=== PATIENT | male | born 1955 | race Caucasian/White ===

== ENCOUNTER 2019-06-14 13:41 | Emergency (ER) | payer OTHER ==
[~2019-06-14] VITALS: Ht 188 cm; Wt 92.1 kg
[2019-06-14 14:00] VITALS: BP 122/68
[2019-06-16] MEDS ORDERED: NAPR-1192 PO (12:08)
== END 2019-06-14 15:49 | disposition home or self-care (01) ==
LOC: ER 13:48
DX: S86.812A Strain of other muscle(s) and tendon(s) at lower leg level, left leg, initial encounter (principal); Z86.718 Personal history of other venous thrombosis and embolism; Z86.711 Personal history of pulmonary embolism; X58.XXXA Exposure to other specified factors, initial encounter; Y93.89 Activity, other specified; Y92.89 Other specified places as the place of occurrence of the external cause; Y99.8 Other external cause status
CPT/HCPCS: 93971-TC

== ENCOUNTER 2019-06-15 20:13 | Emergency (ER) | payer OTHER ==
[~2019-06-15] VITALS: Ht 182.9 cm; Wt 92.1 kg
--- NOTE | 2019-06-15 20:34 | NUR ---
CALLED IN [facility], NO ANSWER.
--- NOTE | 2019-06-15 20:50 | NUR ---
PT BIBSELF C/O CHEST PAIN WITH SOB X 2 HRS. PT AMBULATORY WITH STEADY GAIT, TAKEN TO ROOM 3. PT AXO4. PT TACHYNIC. 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
--- NOTE | 2019-06-15 20:56 | NUR ---
20 RAC IV STARTED, BLOOD WITHDRAWN AND SENT TO LAB.
[2019-06-15 21:07] LABS: BASOPHILS # (AUTO) 0.1 /CMM (0.0-0.2); BASOPHILS % (AUTO) 0.7 % (0.0-2.0); EOSINOPHILS % (AUTO) 2.3 % (0.0-6.0); HEMATOCRIT 46 % (39-51); HEMOGLOBIN 15.8 g/dL (13.5-17.5); LYMPHOCYTES # (AUTO) 1.1 /CMM (0.8-4.8); LYMPHOCYTES % (AUTO) 13.6 % (20.0-44.0); MEAN CORPUSCULAR HGB CONC 34 g/dl (31.0-36.0); MEAN CORPUSCULAR VOLUME 99 fL (80-96); MONOCYTES # (AUTO) 0.9 /CMM (0.1-1.30); MONOCYTES % (AUTO) 10.4 % (2.0-12.0); NEUTROPHILS # (AUTO) 6.1 /CMM (1.8-8.9); PLATELET COUNT (AUTO) 255 /CMM (150-450); WHITE BLOOD COUNT (AUTO) 8.4 K/uL (4.3-11.0)
--- NOTE | 2019-06-15 21:18 | NUR ---
XRAY AT BEDSIDE.
[2019-06-15 21:21] LABS: CALCIUM, SERUM 9.1 mg/dL (8.5-10.1); CARBON DIOXIDE 27 mmol/L (21-32); CHLORIDE 106 mmol/L (98-107); CREATININE 1.2 mg/dL (0.6-1.3); GLUCOSE 190 mg/dL (74-106); POTASSIUM 3.5 mmol/L (3.5-5.1); SODIUM SERUM 142 mmol/L (136-145); UREA NITROGEN, BLOOD 11 mg/dL (7-18)
--- NOTE | 2019-06-15 23:33 | NUR ---
Patient does not wish to proceed with medical care recommended by Dr. DURAN. Patient given information related to possible complications, up to and including , which could occur as a result of leaving the hospital at this time. Patient verbalizes understanding of risks involved due to leaving against medical advice. Patient has signed AMA form.
[2019-06-15 23:47] VITALS: BP 127/80
[2019-06-16] MEDS ORDERED: NAPR-1192 PO (12:08)
== END 2019-06-15 23:47 | disposition left against medical advice (07) ==
LOC: ER 20:16
DX: R07.89 Other chest pain (principal); R00.0 Tachycardia, unspecified; I25.10 Atherosclerotic heart disease of native coronary artery without angina pectoris; Z86.711 Personal history of pulmonary embolism; Z86.718 Personal history of other venous thrombosis and embolism
CPT/HCPCS: 36415; 71045-TC; 80048-TC; 84484-TC; 85025-TC; 85378-TC

== ENCOUNTER → 2019-06-16 | Emergency (ER) | payer OTHER ==
[~2019-06-16] MED LIST: CT SWABBABLE VALVE TRANS SET 1 EA INFUS.SET MC ONE; ENOXAPARIN SODIUM 100 MG/ML DISP.SYRIN SQ ONE; IOHEXOL-300 100 ML VIAL IV ONE; IV NS 0.9% 250 ML IV ONE; NAPR-1192 PO
== END ==
DX: I26.99 Other pulmonary embolism without acute cor pulmonale (principal)
CPT/HCPCS: 36415; 71045; 71260; 80048; 84484; 85025; 85730; 87081; 93005 ×2; 96372; 99291; J1650; J7050; Q9967